=== PATIENT | female | born 1955 | race Caucasian/White ===

== ENCOUNTER 2016-10-23 22:45 | Emergency (ER) | payer BC, MEDICAID ==
[~2016-10-23] VITALS: Ht 165.1 cm; Wt 77.1 kg
[~2016-10-23 22:45] MED LIST: ATOR10TA PO; LOSA25TA3 PO
--- NOTE | 2016-10-23 22:45 | NUR ---
PT BB SON FROM HOME. C/C RIGHT KNEE PAIN & SWELLING x2 DAYS. PAIN NO LONGER MANAGED BY IBUPROFEN 800mg, WHICH WAS LAST TAKEN AT 14:00 TODAY. DENIES TRAUMA, INCREASED ACTIVITY, OR RECENT TRAVEL. A+Ox4. SKIN WARM, DRY. AFEBRILE. NO REDNESS OR WELLING NOTED OF RIGHT KNEE. RR EVEN, UNLABORED. AMBULATED TO ER BED 09 WITH STEADY GAIT. VSS, NAD NOTED. AWAITING MD HUDSON AND FURTHER ORDERS.
[2016-10-23] MEDS ORDERED: KETOROLAC TROMETHAMINE INJ 60 MG/2 ML VIAL IM ONE ×2 (23:28→23:30)
--- NOTE | 2016-10-23 23:30 | NUR ---
MEDICATED PT ORDERED
[2016-10-24 00:55] VITALS: BP 152/95
--- NOTE | 2016-10-24 00:55 | NUR ---
Patient discharged to home in stable condition. Written and verbal after care instructions given. Patient verbalizes understanding of instruction.
== END 2016-10-24 00:56 | disposition home or self-care (01) ==
LOC: ER 22:46
DX: M25.461 Effusion, right knee (principal); M19.90 Unspecified osteoarthritis, unspecified site; I10 Essential (primary) hypertension; Z88.5 Allergy status to narcotic agent; Z88.6 Allergy status to analgesic agent
CPT/HCPCS: 36415; 73564; 84550; 96372; 99285; A4606; J1885; Z7610